=== PATIENT | female | born 2000 | race Caucasian/White ===

== ENCOUNTER 2023-10-10 12:42 | Inpatient (IN) | payer BC ==
[~2023-10-10] VITALS: Ht 162.6 cm; Wt 75.9 kg
[2023-10-12] VITALS (18 sets, daily range): BP systolic 95–140; BP diastolic 54–85; PULSE 80–106; TEMP 97.5–98.4
[2023-10-12] MEDS ORDERED: LR 1,000 ML IV SCH ×2 (06:45→07:00)
--- NOTE | 2023-10-12 06:50 | NUR ---
PATIENT AMBULATED ON TO UNIT. PATIENT PREPPED FOR . PROCEDURE EXPLAINED AND CONSENTS SIGNED.PATIENT DENIES REGUALR CONTRACTIONS, LEAKING OF FLUID OR VAGINAL BLEEDING. REPORTS NORMAL MOVEMENT. ORIENTED TO ROOM AND PLAN OF CARE REVIEWED.
[2023-10-12] MEDS ORDERED: Ondansetron 4 MG/2 ML VIAL IV SCH (07:00)
[2023-10-12] MEDS ORDERED: NATURAL IRON65 MG (07:05)
[2023-10-12] MEDS ORDERED: TUMS500 MG (07:07)
[2023-10-12 07:40] LABS: HEMOGLOBIN 10.8 g/dl (12.5-16.0); MEAN CELL VOLUME 83 fl (80.0-100.0); MEAN CORPUSCULAR HEMOGLOBIN 27 pg (27-31); MEAN CORPUSCULAR HGB CONC 33 g/dl (33.0-37.0); MEAN PLATELET VOLUME 11.7 fl (7.4-10.4); PLATELET COUNT 140 K/mm3 (130-400); RED BLOOD COUNT 3.97 M/mm3 (4.10-5.30); REDCELL DISTRIBUTION WIDTH-CV 13.2 % (11.5-14.5)
[2023-10-12 08:03] LABS: HEMATOCRIT 32.8 % (37.0-47.0)
[2023-10-12] MEDS ORDERED: ePHEDrine 50 MG/ML VIAL ONE (08:21)
[2023-10-12] MEDS ORDERED: Phenylephrine 10 MG/ML VIAL ONE (08:21)
[2023-10-12] MEDS ORDERED: Oxytocin 10 UNITS/ML VIAL ONE (08:21)
[2023-10-12] MEDS ORDERED: NS 10 ML IV ONE ×2 (08:23→09:14)
[2023-10-12] MEDS ORDERED: Ketorolac 30 MG/ML VIAL ONE (09:08)
[2023-10-12] MEDS ORDERED: dexAMETHasone 10 MG/ML VIAL ONE (09:14)
[2023-10-12 09:37] LABS: EOSINOPHIL 2 % (0-4); LYMPHOCYTE 19 % (20.0-51.0); NEUTROPHILS 72 % (42.0-75.2)
[2023-10-12 09:38] LABS: HYPOCHROMIA 1+; PLATELET ESTIMATE NORMAL (NORMAL)
[2023-10-12] MEDS ORDERED: Morphine 4 MG/ML VIAL IV PRN (10:00)
[2023-10-12] MEDS ORDERED: Magnes Hydrox (MOM) 80 MG/ML 30 ML CUP PO PRN (10:00)
[2023-10-12] MEDS ORDERED: Ondansetron 4 MG/2 ML VIAL IV PRN (10:00)
[2023-10-12] MEDS ORDERED: Loratadine 10 MG TAB PO PRN (10:00)
[2023-10-12] MEDS ORDERED: oxyCODONE 5 MG TAB PO PRN (10:00)
[2023-10-12] MEDS ORDERED: LR 1,000 ML IV PRN (10:00)
[2023-10-12] MEDS ORDERED: Measles/Mumps/Rubella Virus Vaccine Live w Diluent 0.5 ML VIAL SQ SCH (10:00)
[2023-10-12] MEDS ORDERED: Naloxone 0.4 MG/ML VIAL IV PRN (10:00)
[2023-10-12] MEDS ORDERED: Acetaminophen 500 MG TAB PO SCH (10:00)
--- NOTE | 2023-10-12 10:10 | NUR ---
Initial visit; Patient and her thanked Zinc Etcher for looking in on them and offering Spiritual Care. Zinc Etcher will keep Carlos A in her prayers as she prepares for a . Zinc Etcher offered God's blessings for the delivery of a healthy baby.
--- NOTE | 2023-10-12 11:55 | NUR ---
THIS RN TAKES OVER CARE. RECEIVED REPORT FROM JONI GONSALEZ RN
--- NOTE | 2023-10-12 15:47 | NUR ---
THIS RN GIVES REPORT TO JONI GONSALEZ RN
[2023-10-12] MEDS ORDERED: Ibuprofen 600 MG TAB PO SCH (15:59)
[2023-10-12] MEDS ORDERED: Sennosides/Docusate 8.6-50 MG TAB PO SCH (17:00)
[2023-10-12] MEDS ORDERED: traZODone 50 MG TAB PO PRN (21:00)
[2023-10-13 00:02] VITALS: BP 115/57; PULSE 94; TEMP 98.3
[2023-10-13 04:50] VITALS: BP 113/67; PULSE 97; TEMP 98
[2023-10-13 07:30] VITALS: BP 118/67; PULSE 92; TEMP 97.9
[2023-10-13] MEDS ORDERED: ROXICODONE 55 MG/TAB PO (07:59)
[2023-10-13] MEDS ORDERED: IBU600 MG PO (07:59)
[2023-10-13 17:51] VITALS: BP 114/62; PULSE 86; TEMP 98.3
[2023-10-13 21:54] VITALS: BP 116/74; PULSE 97; TEMP 97.8
[2023-10-14 07:05] VITALS: BP 117/68; PULSE 98; TEMP 97.7
== END 2023-10-14 14:10 | disposition home or self-care (01) | DRG 788 ==
LOC: OB 10-12 06:24
PROVIDERS: ADMIT Obstetrics & Gynecology
PROC: 10D00Z1 Extraction of Products of Conception, Low, Open Approach (ICD-10-PCS; principal; 2023-10-12)
DX: O32.1XX0 Maternal care for breech presentation, not applicable or unspecified (principal); Z3A.39 39 weeks gestation of pregnancy; O99.02 Anemia complicating childbirth; O69.81X0 Labor and delivery complicated by cord around neck, without compression, not applicable or unspecified; Z37.0 Single live birth
CPT/HCPCS: J0665; J0690; J1100; J1885; J2371; J2405; J2590; J2765; J7120